=== PATIENT | female | born 1995 | race Caucasian/White ===

== ENCOUNTER 2022-04-09 13:15 | Emergency (ER) | payer OTHER, SELFPAY ==
[2022-04-09 13:27] VITALS: BP 141/118; PULSE 123; RESP 22; TEMP 36.4; O2SAT 98
--- NOTE | 2022-04-09 13:28 | ED.FEMALEGU ---
HPI - Female Genitourinary General Chief complaint: Urogenital-Female Stated complaint: pelvic pain, uti symptoms Time Seen by Provider: 04/09/22 13:44 Source: patient and RN notes reviewed Mode of arrival: wheelchair Limitations: no limitations History of Present Illness HPI Narrative: 27-year-old female presented for complaint of right lower abdominal pain since yesterday. She also endorses dysuria, frequency, and urgency. She endorses constipation for a few days following episodes of diarrhea. She denies hematuria, flank pain, nausea, vomiting, fevers or chills. She has been taking Azo for symptoms. She endorses a history of ovarian cysts and a appendectomy. History of anxiety, depression, and bipolar. She states she faints related to bipolar disorder, for which she uses wheelchair. LMP 1 week ago, on oral BCP. Related Data Home Medications Medication Instructions Recorded Confirmed lamotrigine 25 mg tablet 75 mg PO DAILY 03/16/22 03/16/22 norgestimate 0.25 mg-ethinyl 1 tablet PO DAILY 03/16/22 03/16/22 estradiol 35 mcg tablet (Connie) topiramate 25 mg tablet 25 mg PO DAILY PRN 03/16/22 03/16/22 Allergies Allergy/AdvReac Type Severity Reaction Status Date / Time ciprofloxacin [From Cipro] Allergy Mild Hives Verified 04/09/22 13:31 Review of Systems Review of Systems: CONSTITUTIONAL: Denies body aches, fever, chills, or sweats. CARDIOVASCULAR: Denies chest pain, palpitations, or edema. RESPIRATORY: Denies cough or dyspnea. GASTROINTESTINAL: Reports right lower abdominal pain, nausea denies vomiting,or diarrhea. GENITOURINARY: Reports dysuria, frequency, urgency, denies hematuria, flank pain SKIN: Denies rash, itching, or wounds. MUSCULOSKELETAL: Denies back pain or myalgia. [facility] Past Medical History Medical History Bipolar disorder GERMAN (generalized anxiety disorder) Syncopal episodes Surgical History Surgical History History of appendectomy Family History Family History Father Hypertension Social History Social History Smoking status: Never smoker Second hand tobacco smoke exposure: No Alcohol intake: never Substance use: never Substance use type: does not use Gender identity (if verbalized by the patient): Female Sexual Orientation (if Verbalized by the Patient): Straight or Heterosexual Comments At time of signature, I have reviewed and agree with nursing past medical, surgical, social and family history unless otherwise noted. Please see nursing chart for further information. There is no relevant family history pertinent to the presenting complaint Exam Narrative: GENERAL: Appears in pain ENT: Mucous membranes pink and moist. CHEST: Clear to auscultation. HEART: Regular rate and rhythm. ABDOMEN: Large, soft, Tender with light palpation to right suprapubic area; normal active bowel sounds. No CVA tenderness SKIN: Warm, dry, no rash. NEURO: Alert and oriented x3. PSYCH: Normal affect. Course Course Emergency Course: Patient is aware of diagnosis, understands and agrees to treatment plan. Anticipatory guidance given. Portions of this record may have been created with voice recognition software Level of Care: Express Care Visit Vital Signs Vital signs: Vital Signs Temperature 97.6 F 04/09/22 13:27 Pulse Rate 123 H 04/09/22 13:27 Respiratory Rate 22 H 04/09/22 13:27 Blood Pressure 141/118 H 04/09/22 13:27 Pulse Oximetry 98 04/09/22 13:27 Temperature 97.6 F 04/09/22 13:27 Pulse Rate 123 H 04/09/22 13:27 Respiratory Rate 22 H 04/09/22 13:27 Blood Pressure 141/118 H 04/09/22 13:27 Pulse Oximetry 98 04/09/22 13:27 Reviewed Transfer Transfered to: [facility] Transportation: Other (Private vehicle) T
== END 2022-04-09 14:00 | disposition short-term general hospital (02) ==
PROVIDERS: Emergency Provider Nurse Practitioner Family; PCP Family Medicine
DX: R10.31 Right lower quadrant pain (principal); F31.9 Bipolar disorder, unspecified; F41.1 Generalized anxiety disorder
CPT/HCPCS: 81003; 81025; 87077; 87086; 87186; 99213; G0463

== ENCOUNTER 2022-04-09 14:20 | Emergency (ER) | payer OTHER, SELFPAY ==
[2022-04-09] VITALS (23 sets, daily range): BP systolic 145–184; BP diastolic 82–113; PULSE 96–124; RESP 13–28; TEMP 36.9; O2SAT 91–100
--- NOTE | ~2022-04-09 | CT_ITS ---
EXAMINATION: CT abdomen pelvis w con DATE: 04/09/2022 18:51 INDICATION: Abdomen pain TECHNIQUE: Computed tomography (CT) of the abdomen and pelvis was performed with 100 cc Omnipaque 350 intravenous contrast. The dose-length product was 1533.09 mGy-cm. Automated exposure control and ite rative reconstruction technique were employed. COMPARISON: None. FINDINGS: Lung bases are unremarkable. Heart size is normal. No significant pleural or pericardial ef fusion. No significant vascular abnormality. Small hiatal hernia. No lymphadenopathy. Fatty infiltration of the liver. Gallbladder is present. The spleen, pancreas, adrenal glands are unr emarkable. There are small bilateral renal cysts. Small fat-containing umbilical hernia. There are arenas rgical changes of prior appendectomy. No abnormal pelvic masses or fluid collections. Nonobstructive bowel pattern. No free air or free fluid. Mild lumbar spondylosis. IMPRESSION: 1. No acute abdominal abnormality. Reviewed, dictated and finalized at location A.
[2022-04-09 16:52] LABS: Basophils Absolute Auto 0.1 K/mm3 (0.0-0.1); Basophils Percent Auto 0.6 % (0.2-1.2); Eosinophils Absolute Auto 0.2 K/mm3 (0-0.3); Eosinophils Percent Auto 1.3 % (0-4.4); Hematocrit 45.9 % (37.0-47.0); Hemoglobin 15.3 g/dL (12.0-15.0); Immature Granulocyte Absolute 0.03 K/mm3 (0.00-0.031); Immature Granulocyte Percent A 0.2 % (0-0.5); Lymphocytes Absolute Auto 2.21 K/mm3 (0.9-3.2); Mean Corpuscular HGB Conc 33.3 g/dl (32-36); Mean Corpuscular Hemoglobin 29.5 pg (26-34); Mean Corpuscular Volume 88.4 fl (80-100); Mean Platelet Volume 10.1 fl (7.4-10.4); Monocytes Absolute Auto 0.8 K/mm3 (0.1-0.6); Monocytes Percent Auto 6.2 % (2.6-8.5); Neutrophils Absolute Auto 9.1 K/mm3 (1.3-6.7); Neutrophils Percent Auto 73.7 % (45.5-73.1); Platelet Count Result 338 k/mm3 (150-375); Red Blood Count 5.19 M/mm3 (4.2-5.4); Red Cell Distribution Width 13.5 % (11.5-14.5); White Blood Count 12.3 K/mm3 (4.5-10.0)
[2022-04-09 16:55] LABS: Add Urine Microscopic? YES; Appearance Urine Clear (Clear); Bilirubin Urine Negative (Negative); Blood Urine 2+ (Negative); Color Urine Orange (Yellow); Glucose Urine UA Negative (Negative); Ketones Urine Negative (Negative); Leukocyte Esterase Ur 1+ LEU/UL (Negative); Nitrate Urine Positive (Negative); Protein Urine 2+ mg/dL (Negative); Specific Grav Ur 1.015 (1.001-1.035); Urobilinogen Urine 0.2 mg/dL (<2.0); pH Urine 5.5 (5.0-9.0)
[2022-04-09 17:02] LABS: Alanine Aminotransferase 20 U/L (6-35); Albumin Level 4.5 g/dL (3.5-5.1); Alkaline Phosphatase 69 U/L (38-126); Anion Gap 10 mmol/L (8-16); Aspartate Amino Transferase 24 U/L (14-36); Bilirubin,Total 0.5 mg/dL (0.2-1.3); Blood Urea Nitrogen 6 mg/dL (7-17); Calcium 9.3 mg/dL (8.4-10.2); Carbon Dioxide 24 mmol/L (22-30); Chloride 104 mmol/L (98-107); Estimated CRCL calculation 130 ml/min; Estimated Glomerular Filt Rate > 60; Glucose 108 mg/dL (65-110); Lipase 52 U/L (23-300); Potassium 4.1 mmol/L (3.4-5.0); Sodium 138 mmol/L (137-145)
[2022-04-09 17:05] LABS: Bacteria Urine Trace /hpf; Mucus Urine Rare /lpf; Squamous Epithelial Cell Urine Rare /hpf (Few); WBC Urine 21-30 /hpf
--- NOTE | 2022-04-09 19:01 | ED.ABDPAIN ---
HPI - Abdominal Pain General Chief Complaint: Abdominal Pain Stated Complaint: lower abd pain Time Seen by Provider: 04/09/22 18:31 Source: RN notes reviewed History of Present Illness HPI narrative: Patient presents emergency department from home for abdominal pain. Patient states abdominal pain began yesterday the pain is located in right lower quadrant does not radiate described as sharp and stabbing in nature. Patient states has been associated with some dysuria and urinary frequency as well as some nausea she denies any fevers or chills chest pain or shortness of breath Related Data Home Medications Medication Instructions Recorded Confirmed lamotrigine 25 mg tablet 75 mg PO DAILY 03/16/22 04/09/22 norgestimate 0.25 mg-ethinyl 1 tablet PO DAILY 03/16/22 04/09/22 estradiol 35 mcg tablet (Connie) topiramate 25 mg tablet 25 mg PO DAILY PRN Migraine 03/16/22 04/09/22 Headache Allergies Allergy/AdvReac Type Severity Reaction Status Date / Time ciprofloxacin [From Cipro] Allergy Mild Hives Verified 04/09/22 18:39 Review of Systems Review of Systems: Gen.: Denies fevers or chills Eyes: Denies eye pain or visual changes ENT: Denies congestion Respiratory: Denies shortness of breath or cough CV: Denies chest pain or palpitations GI: See HPI reports dysuria Musculoskeletal: Denies back pain or muscle pain Neuro: Denies numbness, tingling, weakness or focal weakness Skin: Denies rash Except as documented, all other systems reviewed and negative PMFSH Past Medical History Medical History Bipolar disorder GERMAN (generalized anxiety disorder) Syncopal episodes Surgical History Surgical History History of appendectomy Family History Family History Father Hypertension Social History Social History Smoking status: Never smoker Second hand tobacco smoke exposure: No Alcohol intake: never Substance use: never Substance use type: does not use Gender identity (if verbalized by the patient): Female Sexual Orientation (if Verbalized by the Patient): Straight or Heterosexual Exam Narrative: APPEARANCE: No acute distress, nontoxic, resting in bed HEENT: Normocephalic, atraumatic, OMM RESPIRATORY: No respiratory distress, clear to auscultation bilaterally with no rhonchi wheezing or rales CARDIOVASCULAR: RRR s murmur ABDOMINAL: Soft nondistended tender palpation right lower quadrant no tenderness in right upper quadrant, left upper quadrant left lower quadrant no rebound or guarding MUSCULOSKELETAl: Moves all extremities. No clubbing, cyanosis or edema. NEURO: Awake and alert. Following commands, speech normal, no focal deficits SKIN:: Warm, dry. Normal Color PSYCHIATRIC: Normal affect/mood Course Course Emergency Course: Reviewed old records discussed with patient she states she always runs mildly tachycardic with heart rate Patient states that they are feeling much better at this time. States abdominal pain has resolved. Repeat abdominal exam shows the patient's abdomen to be soft and nontender. Discussed with patient results of workup and diagnosis. Discussed need for follow-up with primary care physician, reasons to return to the emergency department in proper use of medication. Patient understands and agrees to current treatment plan Vital Signs Vital signs: Vital Signs Temperature 98.4 F 04/09/22 14:48 Pulse Rate 122 H 04/09/22 14:48 Respiratory Rate 18 04/09/22 14:48 Blood Pressure 153/102 H 04/09/22 14:48 Pulse Oximetry 100 04/09/22 14:48 Oxygen Delivery Room Air 04/09/22 14:48 Temperature 98.4 F 04/09/22 14:48 Pulse Rate 110 H 04/09/22 20:00 Respiratory Rate 17 04/09/22 20:00 Blood Pressure 154/84 H 04/09/22 18:55 Pulse Oximetry 97
[2022-04-09] MEDS: SODIUM CHLORIDE 0.9% IV 1,000 ML 999 ML IV CONT ×2 (19:02→20:23)
[2022-04-09] MEDS: KETOROLAC 30 MG/ML VIAL (*BKC) IV PUSH (19:02)
[2022-04-09 19:47] LABS: Lactic Acid Reflex 1.7 mmol/L (0.7-2.0)
--- NOTE | 2022-04-09 20:37 | PC.NURSE ---
Bed alarm, fall sign, and clip given to pt per reports of being a fall risk
== END 2022-04-09 22:18 | disposition home or self-care (01) ==
PROVIDERS: Emergency Medicine; Emergency Provider Emergency Medicine; PCP Family Medicine
DX: N39.0 Urinary tract infection, site not specified (principal); F31.9 Bipolar disorder, unspecified; F41.1 Generalized anxiety disorder
CPT/HCPCS: 36415; 74177; 80053; 81001; 81003; 81025; 83605; 83690; 85025; 87040; 87077; 87086; 87186; 96361; 96365; 96366; 96375; 99284; J0696; J1885; J7030; Q9967

== ENCOUNTER 2022-10-23 08:31 | Outpatient (CLI) | payer OTHER, SELFPAY ==
--- NOTE | 2022-11-16 17:28 | WPDSLEEPSTUD ---
Sleep Study Date of Study: 10/23/22 Ordering Provider: Iza Myles DO Interpreting Physician: Iza Myles DO Sleep Study Type: Polysomnogram Height: 1.63 m Weight: 115.213 kg Body Mass Index: 43.6 Neck Circumference (inches): 13 [place]: 8 Reason for Sleep Study Recurrent syncopal episodes without warning. Abnormal movements in her sleep. Daytime hypersomnia. Concerns for cataplexy due to episodes of full body atonia but can recall events while she is down. Sleep History The patient is a 27-year-old female with recurrent syncopal/cataplexy events of undetermined origin, bipolar disorder, anxiety, abnormal nocturnal movements, migraines, tremors, PTSD and sleep walking episodes that had a sleep study ordered for evaluation of her sleep complaints. 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 The patient denies awakening from sleep short of breath. She denies awakening at night with heartburn, belching or cough. She rarely snores and is never loud enough that others complain. She occasionally has trouble sleeping when she has a cold. She denies waking up gasping for air throughout the night. She denies having breathing problems at night observed by herself or others. She constantly sweats excessively at night. She rarely has heart palpitations or irregular heartbeats during the night. She occasionally falls asleep during the day. She occasionally experiences loss of muscle tone when extremely emotional. She occasionally has trouble at school or work due to sleepiness. She constantly feels unable to move when waking up or falling asleep. She frequently experiences vivid dreamlike scenes upon awakening or falling asleep. She denies feeling afraid of going to sleep. She frequently has nightmares and frequently remembers her dreams. She frequently has thoughts racing through her mind. She constantly feels sad, depressed and anxious. She denies having muscular tension. She constantly notices parts of her body jerk. She frequently kicks during the night and has had banging episodes. She denies having crawling and aching feelings in her legs and denies having leg pain during the night. She denies grinding her teeth during sleep and denies awakening with morning jaw pain. She is occasionally bothered by pain during the day but never awakened by pain during the night. She occasionally wakes up feeling stiff in the morning. She occasionally wakes up with sore or achy muscles. She occasionally wakes up with pain in the neck, spine or other joints. She goes to bed at 11:00 p.m. on both weekdays and weekends. It takes her 45-60 minutes to fall asleep. She wakes up 3-4 times throughout the night to urinate. It takes her 30 minutes to fall back asleep. She wakes up between 8:29 a.m. on both weekdays and weekends. Without her medication, she is unable to sleep. With medication she typically gets 10 hours of sleep per night. She will stay in bed for 20 minutes after waking up in the morning. She currently lives with her . She does not consume any caffeinated beverages within 2 hours of bedtime. She Denies engaging in physical exercise before bedtime. She will read and watch television before falling asleep. She denies taking naps in the afternoon or the evening. She consumes 2-3 caffeinated beverages per day. She will consume 1 alcoholic beverage per week. She denies tobacco use. She currently uses an unspecified recreational drug. [facility] Past Medical History Medical History Bipolar disorder GERMAN (generalized anxiety disorder) Migraines Syncopal episodes Surgical History Surgical History History of appendectomy Family History Family History Father Hypertension Mother Depression Anxiety Gra
[2022-11-16 19:54] VITALS: BMI 43.6
== END 2022-10-24 06:55 | disposition home or self-care (01) ==
LOC: ANHCSM 08:32
PROVIDERS: PCP Family Medicine; Visit Provider Family Medicine
DX: G47.9 Sleep disorder, unspecified (principal); G47.61 Periodic limb movement disorder; R55 Syncope and collapse
CPT/HCPCS: 95810

== ENCOUNTER 2024-02-28 16:52 | Outpatient (CLI) | payer OTHER, SELFPAY ==
--- NOTE | ~2024-02-28 | XR_ITS ---
EXAMINATION: XR forearm LT 2V, XR hand LT 2V, XR wrist LT 2V DATE: 02/28/2024 17:19 INDICATION: Injury to the left forearm, wrist and hand TECHNIQUE: 1. Anteroposterior and lateral views of the left forearm were obtained. 2. Posteroanterior and lateral views of the left wrist were obtained. 3. Dorsal palmar and lateral views of the left hand were obtained. COMPARISON: None. FINDINGS: 2 mm ulnar minus variance. Alignment of the left forearm, wrist and hand is otherwise normal. No frac ture identified. Joint spaces are normal. No focal soft tissue swelling. IMPRESSION: 1. No acute osseous abnormality of the left forearm, wrist or hand. Reviewed, dictated and finalized at location A. IMPRESSION: 1. No acute osseous abnormality of the left forearm, wrist or hand. IMPRESSION: 1. No acute osseous abnormality of the left forearm, wrist or hand.
== END 2024-02-28 16:53 ==
PROVIDERS: PCP Student in an Organized Health Care Education/Training Program; Visit Provider Student in an Organized Health Care Education/Training Program
DX: S69.92XA Unspecified injury of left wrist, hand and finger(s), initial encounter (principal); X58.XXXA Exposure to other specified factors, initial encounter
CPT/HCPCS: 73090; 73100; 73120

== ENCOUNTER 2024-04-17 08:25 | Outpatient (CLI) | payer OTHER, SELFPAY ==
--- NOTE | 2024-04-20 12:46 | WPDNEUROLOGY ---
Neurology EEG Report General Information Date of Study: 04/17/24 TEST Electroencephalogram DIAGNOSIS history of single CONDITION OF RECORDING neurodiagnostic lab EEG NUMBER [id number] CLINICAL HISTORY history of syncope EEG DESCRIPTION During wakefulness the background activity consists of posterior dominant alpha rhythm at 9 hertz with an amplitude of 15-30 microvolts which appears mildly formed. Anteriorly low amplitude mixed frequency activity was seen. Posterior down rhythm is reactive to eye opening. Hyperventilation and photic stimulation were performed which no significant abnormal background changes were seen. Patient did not progress to stage 2 sleep. IMPRESSION This is a normal EEG obtained during awake state.
== END 2024-04-17 08:26 | disposition home or self-care (01) ==
LOC: ANHNEURO 08:27
PROVIDERS: PCP Family Medicine; Visit Provider Student in an Organized Health Care Education/Training Program
DX: R55 Syncope and collapse (principal)
CPT/HCPCS: 95816

== ENCOUNTER 2024-05-15 13:25 | Outpatient (CLI) | payer OTHER, SELFPAY ==
--- NOTE | 2024-05-15 13:27 | ECHO_ITS ---
Patient Info Name: Elli Grace Age: 29 years : 1995 Gender: Female Ht: 64 in Wt: 269 lbs BSA: 2.42 m2 HR: 76 bpm BP: 112 / 84 mmHg Technical Quality: Fair Exam Date: 05/15/2024 1:39 PM Exam Location: Echo Lab Patient Status: Outpatient Admit Date: 05/15/2024 Staff Ordering Physician: Toan Maher DO Cloud Infrastructure Architect: Ruby Martinez RDCS Attending Provider: Toan Maher DO Referring Physician: Gunnar SINGH; Exam Type: CA echo dop color flow w con Study Info Indications R55 - Syncope and collapse Complete two-dimensional, color flow and Doppler transthoracic echocardiogram is performed with contrast to opacify the left ventricle and to improve the deliniation of the left ventricle endocardial borders. Contrast/Agitated Saline Contrast/Ag. Saline: Definity Amount: 3.00 ml Administered By: Ruby Martinez RDCS New IV Access: Outer Forearm and Right Site Condition: No extravasation, Site dressing applied and IV removed Summary 1. Definity contrast administered improved wall motion interpretation. 2. Left ventricular chamber dimension is normal. 3. Left ventricular systolic function is normal, estimated at 60-65%. 4. The left ventricular diastolic function is normal. 5. E/e' 6 is not elevated. 6. There is trace mitral valve regurgitation. 7. No pulmonary hypertension, estimated pulmonary arterial systolic pressure is 31 mmHg. Left Ventricle E/e' 6 is not elevated. Definity contrast administered improved wall motion interpretation. Left ventricular chamber dimension is normal. Left ventricular systolic function is normal, estimated at 60-65%. The left ventricular diastolic function is normal. Right Ventricle Right ventricular chamber dimension is normal. Right ventricular systolic function is normal. Left Atria Left atrial chamber dimension is normal. Right Atria Right atrial chamber dimension is normal. Aortic Valve The aortic valve is trileaflet. There is no aortic valve stenosis. There is no aortic valve regurgitation. Pulmonic Valve There is no pulmonic regurgitation. Mitral Valve There is no mitral valve stenosis. There is trace mitral valve regurgitation. Tricuspid Valve There is no tricuspid valve regurgitation. No pulmonary hypertension, estimated pulmonary arterial systolic pressure is 31 mmHg. Pericardium/Pleural There is no pericardial effusion. Inferior Vena Cava Normal inferior vena cava with >50% collapse upon inspiration consistent with normal right atrial pressure, 5 mmHg. Aorta The aortic root size at the sinus of Valsalva is normal. Left Ventricular Outflow Tract Name Value Normal LVOT 2D LVOT Diameter 2.02 cm LVOT Doppler LVOT Peak Gradient 3 mmHg LVOT Mean Gradient 2 mmHg LVOT VTI 20.57 cm LVOT VTI/AV VTI Ratio 1.04 LVOT Stroke Volume 65.76 ml LVOT CO 4.95 l/min LVOT CI 2.05 L/min/m2 Pulmonic Valve Name Value Normal RVOT Doppler RVOT Peak Gradient 2 mmHg PV Doppler PV Peak Gradient 4 mmHg Mitral Valve Name Value Normal MV Doppler MV Decel Dougherty 446.62 cm/s2 MV PHT 0 s MV Area (PHT) 4.29 cm2 4.00-5.00 MV Diastolic Function MV E Peak Velocity 78.94 cm/s MV A Peak Velocity 67.29 cm/s MV E/A 1.17 MV Decel Time 0 s Tricuspid Valve Name Value Normal TV Regurgitation Doppler TR Peak Velocity 253.44 cm/s TR Peak Gradient 26 mmHg Estimated PAP/RSVP RA Pressure 5 mmHg <=5 PA Systolic Pressure 31 mmHg <36 RV Systolic Pressure 31 mmHg <36 Aorta Name Value Normal Ascending Aorta Ao Root Diameter (MM) 3.19 cm Ao Root Diam Index (MM) 1.32 cm/m2 Aortic Valve Name Value Normal AV Doppler AV Peak Velocity 108.38 cm/s AV Peak Gradient 5 mmHg AV Mean Gradient 3 mmHg AV VTI 19.77 cm AV Area (Cont Eq VTI) 3.33 cm2 >=3.00 AV Area (Cont Eq Curtis) 2.73 cm2 AV Regurgitation 2D LVOT Area 3.20 cm2 Ventricles Name Value Normal LV Dimensions 2D/MM IVS Diastolic Thickness (2D) 0.98 cm 0.60-1.00 IVS Diastole Thickness (MM) 0.76 cm 0.60-0.90 LVID Diastole (2D) 4.51 cm 3.80-5.20 LVID Diastole (MM) 5.24 cm 3.80-5.20 LVIW Diastolic Thickness (2D) 1.06 cm 0.60-0.90 LVIW Diastolic Thickness (MM) 0.92 cm 0.60-0.90 LVID Systole (2D) 2.40 cm 2.20-3.50 LVID Systole (MM) 3.49 cm 2.20-3.50 LVOT Diameter 2.02 cm LV Mass (2D Cubed) 158.25 g 67.00-162.00 LV Mass Index (2D Cubed) 0.01 g/cm2 0.00-0.01 Relative Wall Thickness (2D) 0.47 LV Mass (MM Cubed) 156.25 g 67.00-162.00 LV Mass Index (MM Cubed) 0.01 g/cm2 0.00-0.01 Relative Wall Thickness (MM) 0.35 LV Fractional Shortening/Ejection Fraction 2D/MM LV Fractional Shortening (2D) 47 % 27-45 LV Fractional Shortening (MM) 34 % 27-45 LV EF (MM Teicholz) 62 % 54-74 LV EF (2D Teicholz) 78 % 54-74 LV Diastolic Volume (4C MOD) 97.41 ml LV EF (4C MOD) 75 % LV Diastolic Volume (2C MOD) 99.20 ml LV EF (2C MOD) 75 % LV Diastolic Volume (BP MOD) 98.58 ml 46.00-106.00 LV Diastolic Volume Index (BP MOD) 0.04 l/m2 0.03-0.06 LV Systolic Volume (BP MOD) 26.50 ml 14.00-42.00 LV Systolic Volume Index (BP MOD) 0.01 l/m2 0.01-0.02 LV EF (BP MOD) 73 % 54-74 LV Diastolic Length (4C) 8.60 cm LV Systolic Length (4C) 5.91 cm LV Stroke Volume (4C MOD) 73.07 ml Atria Name Value Normal LA Dimensions LA Dimension (MM) 3.49 cm 2.70-3.80 LA Volume (4C A-L) 45.25 ml LA Volume (BP A-L) 47.40 ml RA Dimensions RA Area (4C) 12.55 cm2 <=18.00 Report Signatures
[2024-05-15] MEDS: PERFLUTREN LIPID MICROSPHERES 1.5 ML VIAL DILUTED TO 10 ML TOTAL VOLUME IV PUSH (14:10)
--- NOTE | 2024-05-15 16:34 | IVDEFINITY ---
Prior to administration of IV Definity the patient was educated on the risks and benefits of the imaging enhancing agent including potential adverse side effects. The patient verbalized understanding. Allergies were verified. No exclusion criteria were identified and at least one of the following inclusion criteria were met: 1) physician request, 2) patient technically difficult to image (per the [place] [employer] Echocardi[employer] guidelines of two or more segments not discernable within the apical view), or 3) questionable left ventricular function. ?
== END 2024-05-15 13:26 | disposition home or self-care (01) ==
LOC: ANHLAB 13:26
PROVIDERS: PCP Family Medicine; Visit Provider Internal Medicine Cardiovascular Disease
DX: R55 Syncope and collapse (principal)
CPT/HCPCS: C8929; Q9957

== ENCOUNTER 2024-05-29 15:26 | Outpatient (CLI) | payer OTHER, SELFPAY ==
--- NOTE | ~2024-05-29 | MR_ITS ---
EXAMINATION: MR brain/brain stem wo con DATE: 05/29/2024 16:07 INDICATION: Syncope and collapse TECHNIQUE: Magnetic resonance imaging (MRI) of the brain and brainstem was performed without intraven ous contrast. Sequences included sagittal and axial T1-weighted SE, axial diffusion-weighted FS SE, a xial T2*-weighted GRE, axial T2-weighted FLAIR Propeller, axial T2-weighted Propeller, coronal T2-jessi ghted FLAIR, and coronal T1-weighted 3D FSPGR. Apparent diffusion coefficient (ADC) maps were created . COMPARISON: None. FINDINGS: There are no areas of restricted diffusion to suggest acute infarction. No intracranial hemorrhage or abnormal intracranial mass lesion. There are no intraparenchymal signal abnormalities seen on the ot her pulse sequences. The ventricles are symmetric and normal in size. Bilateral hippocampi appear nor mal and symmetric. No simpson matter heterotopias or other evident normal migrational abnormalities. The re are no abnormal extra-axial fluid collections. Flow voids are seen in the cerebral arteries on the T2-weighted sequences consistent with their expected patency. Visualized orbits and soft tissues are unremarkable. IMPRESSION: 1. Normal brain MR Reviewed, dictated and finalized at location A. LE CHIP TERRAZZO WORKER IMPRESSION: 1. Normal brain MR
== END 2024-05-29 15:27 | disposition home or self-care (01) ==
LOC: MICIMG 15:29
PROVIDERS: PCP Family Medicine; Visit Provider Psychiatry & Neurology Neurology
DX: R55 Syncope and collapse (principal)
CPT/HCPCS: 70551

== ENCOUNTER 2024-08-01 12:18 | Emergency (ER) | payer OTHER, SELFPAY ==
--- NOTE | ~2024-08-01 | XR_ITS ---
EXAMINATION: XR chest 2V DATE: 08/01/2024 13:19 INDICATION: Cough. TECHNIQUE: Frontal and lateral views of the chest were obtained. COMPARISON: CT abdomen pelvis 04/09/22 FINDINGS: There is no pneumonia, pleural effusion, or pneumothorax. The heart size is normal. IMPRESSION: 1. No acute cardiopulmonary disease. Reviewed, dictated and finalized at location A. PRODUCT MANAGEMENT
[2024-08-01 12:34] VITALS: BP 120/77; PULSE 81; RESP 18; TEMP 36.2; O2SAT 99
--- NOTE | 2024-08-01 12:58 | ED.URI ---
HPI - URI/Sore Throat General Chief Complaint: Upper Respiratory Infection Stated Complaint: sore throat / flu like symptoms Source: patient, RN notes reviewed and old records reviewed Mode of arrival: ambulatory Limitations: no limitations History of Present Illness HPI Narrative: Patient presents accompanied by her . She is complaining of 1 week of sore throat and flu-like symptoms. She has been taking ivlo-hrg-[id number] medication with moderate relief. She reports most bothersome symptom is cough. She is not in any distress, including respiratory distress. She voices no other concerns or complaints today Related Data Home Medications ?Medication ?Instructions ?Recorded ?Confirmed ?Last Taken ?Type propranolol 20 mg tablet 20 mg PO Q12H 11/15/23 06/09/24 Unknown History Allergies Allergy/AdvReac Type Severity Reaction Status Date / Time ciprofloxacin (From Cipro) Allergy Mild Hives Verified 08/01/24 12:29 Review of Systems Review of Systems: All systems reviewed & are unremarkable except as noted in HPI and below Constitutional: Constitutional: Reports no additional constitutional complaints ENT: Reports system reviewed and no additional complaints, except as documented Cardiovascular: Cardiovascular: Reports no additional cardiovascular complaints Respiratory: Respiratory: Reports no additional respiratory complaints Gastrointestinal: Gastrointestinal: Reports no additional gastrointestinal complaints [facility] Past Medical History Medical History Bipolar disorder Depression GERMAN (generalized anxiety disorder) Migraines Syncopal episodes Surgical History Surgical History History of appendectomy Family History Family History Father Hypertension Mother Depression Anxiety Grandparent Hypertension Heart disease Social History Social History Social History: Caffeine-none Smoking status: Never smoker Second hand tobacco smoke exposure: No Alcohol intake: current Drinks per week: 1 Alcohol use details: wine Substance use: current Substance use type: marijuana Other substance usage details: Gummies occasional Lack of Transportation: No Lack of Food: Sometimes True Current Housing: I Have Housing Concerned About Future Housing: No Difficulty Paying Gas/Electric Bills: No Difficulty Paying for Meds: No Currently Unemployed: No Education: High School Diploma/GED Difficulty w/ Childcare or Family Care: No Living arrangements: with family Occupation/Education: unemployed Gender identity (if verbalized by the patient): Female Sexual Orientation (if Verbalized by the Patient): Straight or Heterosexual Comments At the time of my signature, I reviewed and agree with the nursing past medical, surgical, social, and family history. There is no relevant family history pertinent to the patient complaint. Exam Const: General: cooperative, no acute distress, alert and awake Orientation/consciousness: oriented to person, oriented to place and oriented to time HENMT: Head: normal to inspection Resp: Effort & Inspection: normal respiratory effort and able to speak in complete sentences Auscultation: clear to auscultation bilaterally, no crackles, no rales, no rhonchi and no wheezes Cardio: Palpation: normal PMI Rate: regular rate Rhythm: regular rhythm Heart sounds: S1 normal heart sound present and S2 normal heart sound present Neuro: General: oriented to person, oriented to place and oriented to time Cranial nerves: Yes CN's II-XII intact bilaterally Psych: Appearance: grossly normal Thought process: Normal thought process present Insight: Good insight present (Psych) Judgement: Good judgement present (Psych) Course Course Level of Care: Express Care Visit Vital Signs Vital signs: Vital Signs Temperature 97.1 F L 08/01/24 12:34 Pulse Rate 81 08/01/24 12:34 Respiratory Rate 18 08/01/24 12:34 Blood Pressure 120/77 08/01/24 12:34 Pulse Oximetry 99 08/01/24 12:34 Oxygen Delivery Room Air 08/01/24 12:34 Temperature 97.1 F L 08/01/24 12:34 Pulse Rate 81 08/01/24 12:34 Respiratory Rate 18 08/01/24 12:34 Blood Pressure 120/77 08/01/24 12:34 Pulse Oximetry 99 08/01/24 12:34 Oxygen Delivery Room Air 08/01/24 12:34 Reviewed MDM - URI/Sore Throat MDM Narrative Medical decision making narrative: negative flu, negative strep, negative COVID. Strep culture pending. Chest x-ray with no acute findings. Symptoms likely viral in origin. Treat symptomatically. Start prednisone burst, albuterol. Patient or any as PCP appointment scheduled. She is advised to keep this, emergency department for new or worse symptoms. Discharge instructions reviewed with patient, as well as provided in writing per nursing staff. The instructions also include specific and strict return/GO TO THE ER as well as f/u information. All questions have been answered, and the patient deny any further questions with discharge and discharge plan. Some parts of this dictation were generated by voice recognition software and may contain typographical and/or grammatical inaccuracies. Differential Diagnosis Differential diagnosis: Likely upper respiratory infection, otitis media, viral infection, influenza and pharyngitis Medical Records Attestation: I reviewed the patient's medical records. Lab Data Attestation: I reviewed the patient's lab results. Labs: negative COVID, negative flu, negative strep Imaging Data Attestation: I personally reviewed and interpreted this imaging study as follows: My impression: No acute finding Radiologist's impression: [address] [address] XRay Report Signed Patient: Elli Grace : 1995 MR#: [id number] Age: 29 Acct:[id number] Loc: [facility] ADM Date: 08/01/24Attending Dr: Ordering Physician: Kay North FNP Date of Service: 08/01/24 Procedure(s): XR chest 2V Accession Number(s): [id number] cc: Kay North FNP; Laron See MD~ EXAMINATION: XR chest 2V DATE: 08/01/2024 13:19 INDICATION: Cough. TECHNIQUE: Frontal and lateral views of the chest were obtained. COMPARISON: CT abdomen pelvis 04/09/22 FINDINGS: There is no pneumonia, pleural effusion, or pneumothorax. The heart size is normal. IMPRESSION: 1. No acute cardiopulmonary disease. Reviewed, dictated and finalized at location A. RIALS AND PROCESSES MANAGER Please be advised this is a medical document. It is intended for kbxo-[id number] communication. It is written in medical language and may contain unfamiliar abbreviations or verbiage. Medical documents are intended to carry relevant information, facts as evident, and the clinical opinion of the practitioner at the time of the encounter. This report may have been done utilizing a voice recognition system. Attempts have been made to correct errors. However, there may be uncorrected grammatical, spelling, and recognition errors present. The file time of this note does not necessarily represent the time of service. Dictated By: Isaias Brown MD 08/01/24 1320 Signed By: <Electronically signed by Isaias Brown MD in OV> 08/01/24 1321 Discharge Plan Discharge Clinical Impression: Viral infection Patient Disposition: Home, Self-Care Condition: Stable Instructions: Antibiotic Form, Viral Syndrome (ED) Additional Instructions: take medications as prescribed. Follow-up with primary care provider. Emergency department for any new or worse symptoms Patient Language: Persian Prescriptions: New prednisone 50 mg tablet 50 mg PO DAILY Qty: 5 0RF albuterol sulfate [Ventolin HFA] 90 mcg/actuation HFA aerosol inhaler 2 puff inhalation QID PRN (Reason: shortness of breath or wheezing) Qty: 8.5 0RF No Action norethindrone ac-eth estradiol [07/24 (21)] 1-20 mg-mcg tablet 1 tablet PO DAILY Qty: 63 0RF propranolol 20 mg tablet 20 mg PO Q12H lamotrigine 25 mg tablet 25 mg PO BID Qty: 180 1RF quetiapine 100 mg tablet See Rx Instructions .ROUTE .COMPLEX Qty: 90 1RF Dose Instruction: TAKE 1 TABLET BY MOUTH EVERY DAY AT BEDTIME FOR 30 DAYS Rx Instructions: TAKE 1 TABLET BY MOUTH EVERY DAY AT BEDTIME FOR 30 DAYS Qulipta 60 mg tablet 60 mg PO DAILY Qty: 30 6RF Follow-up/Referrals: Laron See MD [Primary Care Provider] - 3 Days Time of Disposition: 13:34
--- OUTSIDE RECORDS SUMMARY | 2024-08-01 12:58 | XMS_ITS | Clinical Summary ---
Author Organization [facility] Address [address] [place] [id number] Care Team Providers Care Biological Science Technician Fish Name Role Phone Unavailable Primary Care Provider Unavailabl e Social History Tobacco Use Types Packs/Day Years Used Date Smoking Tobacco: Never Assessed Comments Unknown Sex and Gender Information Value Date Recorded Sex Assigned at Not on file Legal Sex Female 8:49 AM CDT Gender Identity Not on file Sexual Orientation Not on file Plan of Treatment Health Maintenance Due Date Last Done Comments Hepatitis C Virus (HCV) Screening 1995 TdaP Immunization 1995 Hepatitis B Immunization (1 of 3 - 19+ 3-dose series) 2013 Pap Smear 2015 Cervical Cancer Screening (CCS) 02/08/2024 HPV/Cotest 02/08/2024 Influenza Immunization (#1) 2024 SARS-COV-2 Immunization ( season) 2024 10/09/2020 Respiratory Syncytial Virus (RSV) Immunization (Adult) (1 - 1-dose 75+ series) 2069 Meningococcal Immunization (ACWY) Aged Out No longer eligible based on patient's age to complete this topic Pneumococcal Immunization Combined Aged Out No longer eligible based on patient's age to complete this topic Rotavirus Immunization Aged Out No lo nger eligible based on patient's age to complete this topic
--- OUTSIDE RECORDS SUMMARY | 2024-08-01 12:58 | XMS_ITS | Patient Health Summary ---
Author Organization [facility] Address [address] [place] [address] Care Team Providers Care Gun Welder Name Role Phone Shawn Jaquez DO Primary Care Provider [phone] Note from [facility],non-owned Affiliates and Associated Physician Practices is amultiple site organization consisting of ambulatory clinics and hospital sitesin [place], [place], [place] and [place]. This disclosure is being madepursuant to the Care Everywhere program and may not contain all information available regarding this patient. Last updated 18.[facility] [employer] Allergies * Ciprofloxacin(Rash) -Medium Criticality Medications * Be aware that medications may not be up to date on this document. Alwaysverify current medications with the patient. * norgestimate-ethinyl estradiol (MONO-LINYAH) 0.25-35 MG-MCG tablet Take 1 tablet by mouth once daily * Escitalopram Oxalate (LEXAPRO PO) * Propranolol HCl (INDERAL PO) * INDOMETHACIN PO * Eletriptan Hydrobromide (RELPAX PO) Social History Tobacco Use Types Packs/Day Years Used Date Smoking Tobacco: Never Smokeless Tobacco: Never Tobacco Cessation:Counseling Given: No Alcohol Use Standard Drinks/Week Comments No 0 (1 standard drink = 0.6 oz pur e alcohol) Sex and Gender Information Value Date Recorded Sex Assigned at Not on file Gender Identity Not on file Sexual Orientation Not on file Last Filed Vital Signs Vital Sign Reading Time Taken Comments Blood Pressure 124/74 11/28/2018 11:45 AM CDT Pulse 98 11/28/2018 11:45 AM CDT Temperature 36.8 ??C (98.2 ??F) 11/28/2018 11:45 AM C DT Respiratory Rate 17 06/13/2018 9:24 AM EDGE SANDER Oxygen Saturation 97% 11/28/2018 11:45 AM CDT Inhaled Oxygen Concentration - - Weight 103.9 kg (229 lb) 11/28/2018 11:45 AM CDT Height 162.6 cm (5' 4 ) 11/28/2018 11:45 AM CDT Body Mass Index 39.31 11/28/2018 11:45 AM CDT Care Teams Gun Welder Relationship Specialty Start Date End Date Shawn Jaquez DO PCP - General Internal Medicine 06/13/18
--- OUTSIDE RECORDS SUMMARY | 2024-08-01 12:58 | XMS_ITS | Referral Summary ---
Author Organization [facility] Address [address] [place] [address] Care Team Providers Care Oil Laboratory Analyst Name Role Phone Shawn Jaquez DO Primary Care Provider [phone] Source Comments [facility],non-owned Affiliates and Associated Physician Practices is amultiple site organization consisting of ambulatory clinics and hospital sitesin [place], [place], [place] and [place]. This disclosure is being madepursuant to the Care Everywhere program and may not contain all information available regarding this patient. Last updated 18.[facility] [employer] Allergies Active Allergy Reactions Criticality Noted Date Comments Ciprofloxacin Rash Medium 06/13/2018 Medications * Be aware that medications may not be up to date on this document. Alwaysverify current medications with the patient. Medication Sig Dispensed Refills Start Date End Date Status norgestimate-ethinyl estradiol (MONO-LINYAH) 0.25-35 MG-MCG tablet Take 1 tablet by mouth once daily Active Escitalopram Oxalate (LEXAPRO PO) Active Propranolol HCl (INDERAL PO) Active INDOMETHACIN PO Active Eletriptan Hydrobromide (RELPAX PO) Active Social History Tobacco Use Types Packs/Day Years [...] DT Respiratory Rate 17 06/13/2018 9:24 AM TECHNICAL HEALTHCARE CONSULTANT Oxygen Saturation 97% 11/28/2018 11:45 AM CDT Inhaled Oxygen Concentration - - Weight 103.9 kg (229 lb) 11/28/2018 11:45 AM CDT Height 162.6 cm (5' 4 ) 11/28/2018 11:45 AM CDT Body Mass Index 39.31 11/28/2018 11:45 AM CDT Plan of Treatment Not on file Care Teams Oil Laboratory Analyst Relationship Specialty Start Date End Date Shawn Jaquez DO PCP - General Internal Medicine 06/13/18
--- OUTSIDE RECORDS SUMMARY | 2024-08-01 12:58 | XMS_ITS | Clinical Summary ---
Author Organization [facility] Address [address] [place] [address] Care Team Providers Care Stage Manager Name Role Phone Shawn Jaquez DO Primary Care Provider [phone] Source Comments [facility],non-owned Affiliates and Associated Physician Practices is amultiple site organization consisting of ambulatory clinics and hospital sitesin [place], [place], [place] and [place]. This disclosure is being madepursuant to the Care Everywhere program and may not contain all information available regarding this patient. Last updated 18.[facility] [employer] Allergies Active Allergy Reactions Criticality Noted Date [...] DT Respiratory Rate 17 06/13/2018 9:24 AM PSYCHOLOGY INSTRUCTOR Oxygen Saturation 97% 11/28/2018 11:45 AM CDT Inhaled Oxygen Concentration - - Weight 103.9 kg (229 lb) 11/28/2018 11:45 AM CDT Height 162.6 cm (5' 4 ) 11/28/2018 11:45 AM CDT Body Mass Index 39.31 11/28/2018 11:45 AM CDT Plan of Treatment Health Maintenance Due Date Last Done Comments PAP SMEAR 1994 HIV SCREENING 2009 HEPATITIS C SCREENING 02/03/2012 DTAP/TDAP/TD VACCINES (1 - Tdap) 2013 HEPATITIS B VACCINE (1 of 3 - 19+ 3-dose series) 2013 COVID-19 VACCINE (1 - 2023-2 5 season) 2024 INFLUENZA VACCINE (#1) 2024 DEPRESSION SCREENING 07/05/2024 ZOSTER VACCINE (1 of 2) 02/08/2044 HIB VACCINE Aged Out No longer eligi ble based on patient's age to complete this topic HPV VACCINE Aged Out No longer eligi ble based on patient's age to complete this topic MENINGOCOCCAL (Group B) VACCINE Aged Out No longer eligible based on patient's age to complete this topic MENINGOCOCCAL VACCINE Aged Out No neha jacinta eligible based on patient's age to complete this topic PNEUMOCOCCAL VACCINE Aged Out No long er eligible based on patient's age to complete this topic Care Teams Stage Manager Relationship Specialty Start Date End Date Shawn Jaquez DO PCP - General Internal Medicine 06/13/18
--- OUTSIDE RECORDS SUMMARY | 2024-08-01 12:58 | XMS_ITS | CONTINUITY OF CARE DOCUMENT ---
Author Name kanadonald kanadonald Address Unknown Organization [facility] Address [address] [place] [address] Phone [phone] Care Team Providers Care Plate Mounter Name Role Phone Mague Hernandez MD Unavailable [phone] APRYL LAM DO Unavailable [phone] APRYL LAM DO Unavailable [phone] PROBLEMS Condition Status Date Provider Notes Syncope active Placido Castanon Family History of Hypertension: active ? Faith Hernandez MD ENCOUNTERS Date Type Provider Location Encounter Diagnosis - In-person encounter Office Visit Mague Hernandez MD [place] Family History of Hypertension: VITAL SIGNS Date Observation Value Provider blood pressure, diastolic, standing 60 mm [Hg] Mague Hernandez MD blood pressure, systolic, standing 90 mm[ Hg] Mague Hernandez MD blood pressure, diastolic, sitting 70 mm[ Hg] Mague Hernandez MD blood pressure, systolic, sitting 100 mm[ Hg] Mague Hernandez MD Body Mass Index (Ratio) 37.42 kg/m2 Faith Hernandez MD blood pressure, resting No Kill abigail Burns blood pressure, diastolic 70 mm[Hg] Ki llabigail Burns blood pressure, systolic 100 mm[Hg] Kil nelly Katy oxygen saturation, oximetry 98 % Zulma Burns respiratory rate E&M 16 /min Zulma Burns pulse rate 83 /min Zulma Burns weight E&M 218 [lb_av] Zulma Burns height E&M 64 [in_i] Zulma Burns ALLERGIES Allergy Name Onset Date Reaction Criticality Status CIPRO Hives Hives Low Criticality active HISTORY OF MEDICATION USE Medication Status Instructions Dates Provider Indications Com ments FLUDROCORTISONE ACETATE 0.1 MG ORAL TABLET active two tabs daily Mague Hernandez MD MONO-LINYAH 0.25-35 MG-MCG ORAL TABLET active 1 tab daily Zulma Burns TOPIRAMATE 50 MG ORAL TABLET active 1 tab 3x daily Zulma Burns SOCIAL HISTORY Date Observation Value Provider number of grandchildren Mague Hernandez MD social history E&M S moking History: Rodriguez leblanc has never smoked. Mague Hernandez MD social history reviewed E&M revi ewed - no changes required Mague Hernandez MD smoking status Never smoker Zulma stone FAMILY HISTORY Family Member Condition Father Family History of Co ronary Artery Disease: Father Family History of Hy pertension: Father Family History of Hy perlipidemia: Uncle Family History of Co ronary Artery Disease: Maternal Grandmother Family History of H ypertension: Mother Family History of Hy pertension: INSURANCE PROVIDERS Payer name Policy type / Coverage type Benn[place] red republican ID [facility] [id number] ADVANCE DIRECTIVES Name Date DISCUSSED - NO DECISION MADE TREATMENT PLAN Date Name Performer Cardiology:She eddi nues to have these unexplained syncopal episodes with no warning. There has been some improvement in these episodes with the wearing of compression stockings. The telesentry monitor showed no significant arrhythmias, sinus rhythm with a max heart rate of 104. There is a 10mm systolic drop in blood pressure on standing. Her symptoms remain unexplained and will arrange for tilt table test. The etiology is likely POTS. Florinef dose increased to .2mg daily and she was advised to increase her fluid take. Mague Hernandez MD Date Name Tilt Table Test HISTORY OF PROCEDURES Procedure Date Procedure Name Provider Procedure Notes S tatus EKG Mague Hernandez MD complet ed Event Monitor Mague Hernandez MD comp leted
--- OUTSIDE RECORDS SUMMARY | 2024-08-01 13:02 | XMS_ITS | CONTINUITY OF CARE DOCUMENT ---
Author Name kanadonald kanadonald Address Unknown Organization [facility] Address [address] [place] [address] Phone [phone] Care Team Providers Care Nutrition Aides Teacher Name Role Phone Mague Hernandez MD Unavailable APRYL LAM DO Unavailable [phone] APRYL LAM DO Unavailable [phone] PROBLEMS Condition Status Date Provider Notes Syncope active Placido Castanon Family History of Hypertension: active ? Faith Hernandez MD ENCOUNTERS Date Type Provider Location Encounter Diagnosis - In-person encounter Office Visit Mague Hernandez MD [place] [facility] Family History of Hypertension: VITAL SIGNS [...] MG-MCG ORAL TABLET active 1 tab daily uZlma Burns TOPIRAMATE 50 MG ORAL TABLET active 1 tab 3x daily Zulma Burns SOCIAL HISTORY Date Observation Value Provider number of grandchildren Mague Hernandez MD social history E&M S moking History: Rodriguez leblanc has never smoked. Mgaue Hernandez MD social history reviewed E&M revi [...] Payer name Policy type / Coverage type [place] red democrat ID [facility] [id number] ADVANCE DIRECTIVES Name Date DISCUSSED - NO [...]
[2024-08-01 13:18] LABS: EDCOVIDSCREEN Negative (Negative); EDINFLUASCREEN Negative (Negative); EDINFLUBSCREEN Negative (Negative); EDSTREPNEGPOS1 Negative (Negative)
== END 2024-08-01 13:37 | disposition home or self-care (01) ==
PROVIDERS: Emergency Provider Nurse Practitioner Family; PCP Family Medicine
DX: B34.9 Viral infection, unspecified (principal); Z20.822 Contact with and (suspected) exposure to COVID-19; F31.9 Bipolar disorder, unspecified
CPT/HCPCS: 71046; 87081; 87426; 87804; 87880; 99213; G0463

== ENCOUNTER 2024-08-21 17:40 | Emergency (ER) | payer OTHER, SELFPAY ==
[2024-08-21 17:59] VITALS: BP 128/93; PULSE 118; RESP 16; TEMP 36.3; O2SAT 98
--- NOTE | 2024-08-21 18:14 | ED.URI ---
HPI - URI/Sore Throat General Chief Complaint: Upper Respiratory Infection Stated Complaint: cough,WAY,threw up,wheezing,fever,bodyaches Time Seen by Provider: 08/21/24 18:14 Source: patient, RN notes reviewed and old records reviewed Mode of arrival: ambulatory Limitations: no limitations History of Present Illness HPI Narrative: Patient presents with complaints of flu-like symptoms since yesterday. She took Tylenol cold and flu 1 time today. Otherwise has not taken anything for her symptoms. Related Data Home Medications ?Medication ?Instructions ?Recorded ?Confirmed ?Last Taken ?Type propranolol 20 mg tablet 20 mg PO Q12H 11/15/23 06/09/24 Unknown History sertraline 100 mg tablet mg 08/21/24 Unknown History Allergies Allergy/AdvReac Type Severity Reaction Status Date / Time ciprofloxacin (From Cipro) Allergy Mild Hives Verified 08/21/24 18:07 Review of Systems Review of Systems: All systems reviewed & are unremarkable except as noted in HPI and below Constitutional: Constitutional: Reports no additional constitutional complaints, Reports body ache(s), Reports chills and Reports fever(s) ENT: Reports system reviewed and no additional complaints, except as documented, Reports nasal congestion and Reports nasal discharge Cardiovascular: Cardiovascular: Reports no additional cardiovascular complaints Respiratory: Respiratory: Reports no additional respiratory complaints and Reports cough Gastrointestinal: Gastrointestinal: Reports no additional gastrointestinal complaints PMF Past Medical History Medical History Syncopal episodes Depression Migraines GERMAN (generalized anxiety disorder) Bipolar disorder Surgical History Surgical History History of appendectomy Family History Family History Father Hypertension Mother Depression Anxiety Grandparent Hypertension Heart disease Social History Social History Social History: Caffeine-none Smoking status: Never smoker Second hand tobacco smoke exposure: No Alcohol intake: current Drinks per week: 1 Alcohol use details: wine Substance use: current Substance use type: marijuana Other substance usage details: Gummies occasional Lack of Transportation: No Lack of Food: Sometimes True Current Housing: I Have Housing Concerned About Future Housing: No Difficulty Paying Gas/Electric Bills: No Difficulty Paying for Meds: No Currently Unemployed: No Education: High School Diploma/GED Difficulty w/ Childcare or Family Care: No Living arrangements: with family Occupation/Education: unemployed Gender identity (if verbalized by the patient): Female Sexual Orientation (if Verbalized by the Patient): Straight or Heterosexual Comments At the time of my signature, I reviewed and agree with the nursing past medical, surgical, social, and family history. There is no relevant family history pertinent to the patient complaint. Exam Const: General: cooperative, no acute distress, alert and awake Orientation/consciousness: oriented to person, oriented to place and oriented to time HENMT: Head: normal to inspection Mouth: Yes moist mucous membranes Resp: Effort & Inspection: normal respiratory effort and able to speak in complete sentences Auscultation: clear to auscultation bilaterally, no crackles, no rales, no rhonchi and no wheezes Cardio: Palpation: normal PMI Rate: regular rate Rhythm: regular rhythm Heart sounds: S1 normal heart sound present and S2 normal heart sound present Neuro: General: oriented to person, oriented to place and oriented to time Cranial nerves: Yes CN's II-XII intact bilaterally Psych: Appearance: grossly normal Thought process: Normal thought process present Insight: Good insight present (Psych) Judgement: Good judgement present (Psych) Course Course Level of Care: Express Care Visit Vital Signs Vital signs: Vital Signs Temperature 97.3 F L 08/21/24 17:59 Pulse Rate 118 H 08/21/24 17:59 Respiratory Rate 16 08/21/24 17:59 Blood Pressure 128/93 H 08/21/24 17:59 Pulse Oximetry 98 08/21/24 17:59 Oxygen Delivery Autopap 08/21/24 17:59 Temperature 97.3 F L 08/21/24 17:59 Pulse Rate 118 H 08/21/24 17:59 Respiratory Rate 16 08/21/24 17:59 Blood Pressure 128/93 H 08/21/24 17:59 Pulse Oximetry 98 08/21/24 17:59 Oxygen Delivery Autopap 08/21/24 17:59 Reviewed MDM - URI/Sore Throat MDM Narrative Medical decision making narrative: Reassuring physical exam. Positive flu a. Supportive care measures discussed. Discharge instructions reviewed with patient, as well as provided in writing per nursing staff. The instructions also include specific and strict return/GO TO THE ER as well as f/u information. All questions have been answered, and the patient deny any further questions with discharge and discharge plan. Some parts of this dictation were generated by voice recognition software and may contain typographical and/or grammatical inaccuracies. Differential Diagnosis Differential diagnosis: Likely upper respiratory infection, otitis media, viral infection and influenza Medical Records Attestation: I reviewed the patient's medical records. Lab Data Attestation: I reviewed the patient's lab results. Discharge Plan Discharge Clinical Impression: Influenza Patient Disposition: Home, Self-Care Condition: Stable Instructions: Antibiotic Form, Influenza (ED) Patient Language: Bel[place]ian Prescriptions: No Action sertraline 100 mg tablet norethindrone ac-eth estradiol [07/24 (21)] 1-20 mg-mcg tablet 1 tablet PO DAILY Qty: 63 0RF propranolol 20 mg tablet 20 mg PO Q12H lamotrigine 25 mg tablet 25 mg PO BID Qty: 180 1RF quetiapine 100 mg tablet See Rx Instructions .ROUTE .COMPLEX Qty: 90 1RF Dose Instruction: TAKE 1 TABLET BY MOUTH EVERY DAY AT BEDTIME FOR 30 DAYS Rx Instructions: TAKE 1 TABLET BY MOUTH EVERY DAY AT BEDTIME FOR 30 DAYS Follow-up/Referrals: Laron See MD [Primary Care Provider] - 2 Weeks Time of Disposition: 18:27
[2024-08-21 18:34] LABS: EDCOVIDSCREEN Negative (Negative); EDINFLUASCREEN Positive (Negative); EDINFLUBSCREEN Negative (Negative)
== END 2024-08-21 18:29 | disposition home or self-care (01) ==
PROVIDERS: Emergency Provider Nurse Practitioner Family; PCP Family Medicine
DX: J10.1 Influenza due to other identified influenza virus with other respiratory manifestations (principal); Z20.822 Contact with and (suspected) exposure to COVID-19; F31.9 Bipolar disorder, unspecified
CPT/HCPCS: 87426; 87804; 99212; G0463